=== PATIENT | male | born 1980 | race African-American/Black ===

== ENCOUNTER 2018-11-09 15:30 | Emergency (ER) | payer MEDICAID ==
[~2018-11-09] VITALS: Ht 170.2 cm; Wt 55.0 kg
[~2018-11-09 15:30] MED LIST: ACET-3161; LEVAQUIN
[2018-11-09] MEDS ORDERED: ONDANSETRON HCL 4MG/2ML INJ IV STA (19:07)
[2018-11-09] MEDS ORDERED: SODIUM CHLORIDE 0.9% 1,000 ML IV ONE (19:07)
[2018-11-09] MEDS ORDERED: KETOROLAC 30MG/ML VIAL IV STA (19:07)
[2018-11-09 19:31] LABS: BASOPHILS % 1.1 % (0.0-2.0); EOSINOPHILS % 0.4 % (0.0-5.0); HEMOGLOBIN. 17.1 g/dL (14.0-18.0); LYMPHOCYTES % 25.6 % (20.0-50.0); MEAN CORPUSCULAR HEMOGLOBIN 31.4 pg (28.0-32.0); MEAN CORPUSCULAR VOLUME 91.9 fL (80.0-94.0); MEAN PLATELET VOLUME 7.9 fl (7.4-10.4); MONOCYTES % 6.9 % (2.0-8.0); PLATELET 270 x1000/uL (130-400); RED BLOOD CELL COUNT 5.44 mill/uL (4.7-6.1); RED CELL DISTRIBUTION WIDTH 13.3 % (11.6-14.6)
[2018-11-09 19:34] LABS: CHLORIDE 97 mEq/L (98-107)
[2018-11-09 19:38] LABS: ETHANOL BLOOD < 10 mg/dL
[2018-11-09 22:12] LABS: CLARITY URINE CLEAR (CLEAR); COLOR URINE DARK YELLOW (YELLOW); KETONES URINE 3+ (NEGATIVE); LEUKOCYTE ESTERASE URINE NEGATIVE (NEGATIVE); NITRITE URINE NEGATIVE (NEGATIVE); OCCULT BLOOD URINE 1+ (NEGATIVE); PROTEIN URINE 3+ (NEGATIVE); SPECIFIC GRAVITY URINE 1.041 (1.005-1.030)
[2018-11-09 22:21] LABS: *AMPHETAMINES SCREEN URINE NEGATIVE (NEGATIVE); *BARBITURATES SCREEN URINE NEGATIVE (NEGATIVE); *BENZODIAZEPINES SCREEN URINE NEGATIVE (NEGATIVE); *COCAINE SCREEN URINE NEGATIVE (NEGATIVE); METHADONE URINE SCREEN NEGATIVE (NEGATIVE); OPIATES URINE SCREEN NEGATIVE (NEGATIVE)
[2018-11-09 22:22] LABS: CANNABINOID URINE SCREEN PRESUMTIVE POSITIVE (NEGATIVE); PHENCYCLIDINE URINE SCREEN NEGATIVE (NEGATIVE)
[2018-11-09 23:54] VITALS: BP 153/94
== END 2018-11-10 01:45 | disposition home or self-care (01) ==
LOC: ER 15:30
DX: R10.84 Generalized abdominal pain (principal); R11.2 Nausea with vomiting, unspecified
CPT/HCPCS: 36415; 80053; 80305; 80320; 81003; 83690; 85025; 96361; 96374; 96375; 99283; J1885; J2405; J7030; Z7610; G0480